=== PATIENT | male | born 1990 | race Hispanic/Latino ===

== ENCOUNTER 2018-05-27 02:39 | Emergency (ER) | payer OTHER ==
[2018-05-27] MEDS ORDERED: LIDOCAINE HCL MPF 1% 5ML VIAL ONE (03:23)
[2018-05-27] MEDS ORDERED: TETANUS/DIPHTHERIA TOXOID [ADULT] 0.5 ML VIAL IM ONE (03:32)
== END 2018-05-27 03:54 | disposition home or self-care (01) ==
LOC: EDH 02:39
DX: S01.81XA Laceration without foreign body of other part of head, initial encounter (principal); Z72.0 Tobacco use; W22.8XXA Striking against or struck by other objects, initial encounter; Y93.89 Activity, other specified; Y92.488 Other paved roadways as the place of occurrence of the external cause; Y99.8 Other external cause status
CPT/HCPCS: 12052; 90471; 90714; 99284; J3490